=== PATIENT | male | born 1970 | race Two or more races ===

== ENCOUNTER 2017-09-28 20:57 | Emergency (ER) | payer MEDICARE, MEDICAID ==
[~2017-09-28 20:57] MED LIST: ACET-868 PO; BISA10SU8 RC; FOLI1TAB16 PO; FURO-144 PO; HYDR2VIA3 IVP; IBUP-1955 PO; MAGN400O6 PO; NA P133E RC; NAPR-1009 PO; ONDA4TAB5 PO; SPIR100T5 PO; THIA100T74 PO; VANC1PLA9 IV
--- NOTE | 2017-09-28 22:02 | NUR ---
CALLED X4; NOT ANYWHERE. INFORMED "PT LEFT"
== END 2017-09-28 22:03 | disposition left against medical advice (07) ==
LOC: ER 20:59
DX: Z53.21 Procedure and treatment not carried out due to patient leaving prior to being seen by health care provider (principal)